=== PATIENT | male | born 1980 | race Caucasian/White ===

== ENCOUNTER 2019-03-14 18:54 | Emergency (ER) | payer OTHER ==
[~2019-03-14] VITALS: Ht 180 cm; Wt 80.0 kg
[2019-03-14 19:08] VITALS: BP 144/90
[2019-03-14] MEDS ORDERED: CLEOCIN HC150 MG/CAP PO (20:01)
[2019-03-14 20:17] VITALS: PULSE 76; TEMP 98
== END 2019-03-14 20:22 | disposition home or self-care (01) ==
LOC: COL.ER 18:54
DX: L03.213 Periorbital cellulitis (principal)